=== PATIENT | female | born 2000 | race Caucasian/White ===

== ENCOUNTER → 2018-08-13 | Outpatient (CLI) | payer OTHER ==
[~2018-08-13] MED LIST: IOPAMIDOL 76% 50 ML INFUS BTL 100 ML ONE
--- NOTE | 2018-08-13 15:00 | RADIOLOGY IMAGING REPORT ---
FACILITY: [facility] PATIENT NAME: Irene King : 2000 MR: [id number] V: [id number] EXAM DATE: [id number] ORDERING PHYSICIAN: FREEMAN AYON TECHNOLOGIST: Location: [facility] [place] Patient: Irene King : 2000 Visit/Account:[id number] Date of Sevice: 08/13/2018 ABDOMEN/PELVIS W/WO CONTRAST HISTORY: History of right ovarian cysts, left lower quadrant right lower quadrant pain. Left ovary not identified on clinical ultrasound, family history of endometriosis TECHNIQUE: Axial images acquired through the abdomen/pelvis both with and without IV contrast.. Dionte nal and sagittal reformatting also performed.Dose Lowering Technique One of the following dose optimization techniques was utilized in the performance of this exam: Autom ated exposure control; adjustment of the mA and/or kV according to the patient's size; or use of an i terative reconstruction technique. Specific details can be referenced in the facility's radiology C T exam operational policy. CONTRAST: 75 mL Isovue-370 COMPARISON: None. FINDINGS: Visualized lung bases: Negative. Hepatobiliary: Negative. Spleen: Negative. Adrenals: Negative. Pancreas: Negative. Kidneys ureters and bladder: No demonstration of urolithiasis, hydronephrosis or hydroureter. The re nal parenchyma enhances symmetrically Genitalia: Uterus is retroverted. There is an IUD in place GI: No evidence of bowel obstruction or bowel wall thickening. The appendix is visualized and does not appear inflamed Vessels/spaces/nodes: Negative. 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
== END ==
LOC: CT 12:40
PROVIDERS: ATTEND Obstetrics & Gynecology
DX: R10.32 Left lower quadrant pain (principal); R10.31 Right lower quadrant pain
CPT/HCPCS: 74178; Q9967